=== PATIENT | female | born 1935 | race Caucasian/White ===

== ENCOUNTER 2017-01-09 16:59 | Emergency (ER) | payer MEDICARE, BC ==
[~2017-01-09] VITALS: Ht 157.5 cm; Wt 60.9 kg
[~2017-01-09 16:59] MED LIST: SALI414L TOP; VALS160T20 PO; ZOLP5TAB
[2017-01-09 17:02] VITALS: Ht 157.5 cm; Wt 60.9 kg
[2017-01-09] MEDS ORDERED: ACETAMINOPHEN 500 MG TAB PO STA (17:31)
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
--- NOTE | 2017-01-09 18:23 | RADRPT ---
PROCEDURE: CT Brain without contrast. CLINICAL INDICATION: Trauma, headache. TECHNIQUE: A CT of the brain was performed utilizing axial sections from the skull base through th e vertex without contrast. Multiplanar re-formations were generated. Images were reviewed on a high- resolution PACS workstation. CTDIvol: 44.03 mGy. DLP: 720.23 mGy-cm. One or more of the following dose reduction techniques were used: - Automated exposure control. - Adjustment of the mA and/or kV according to patient size. - Use of iterative reconstruction technique. COMPARISON: None available FINDINGS: There is mild to moderate generalized volume loss. No hydrocephalus is seen. A 6 mm calcified dural -based lesion along the left frontal region is consistent with a meningioma. There is no mass effec t. No acute intracranial hemorrhage is identified. There is no extra-axial collection. No CT eviden ce of acute infarction is identified. There is patchy low attenuation in the supratentorial white m atter, a nonspecific finding which most likely represents the sequela of mild to moderate chronic mi crovascular ischemic disease. There are moderate atherosclerotic arterial calcifications. There is no significant mucosal disease in the paranasal sinuses. The visualized mastoid air cells a re clear. The ossesous structures are unremarkable. There is soft tissue swelling over the nose. IMPRESSION: 1. No acute intracranial pathology. 2. Mild to moderate generalized volume loss. 3. Mild to moderate chronic microvascular ischemic changes. 4. Atherosclerotic arterial calcifications. 5. 6 mm calcified meningioma along the left frontal calvarium, without associated mass effect. RPTAT: HTAR .Rickie Locke MD, Date Time Electronically viewed and signed by .Rickie Locke MD, MD on 01/09/2017 18:22 .R/
--- NOTE | 2017-01-09 18:25 | RADRPT ---
PROCEDURE: CT scan facial bones CLINICAL INDICATION: Trauma, facial pain. TECHNIQUE: A CT of the facial bones was performed without intravenous contrast. Coronal and sagitt al reformats were generated. CTDIvol: 29.42 mGy. DLP: 488.19 mGy-cm. One or more of the following dose reduction techniques were used: - Automated exposure control. - Adjustment of the mA and/or kV according to patient size. - Use of iterative reconstruction technique. COMPARISON: None available FINDINGS: The soft tissues of the face are unremarkable. There is no facial fracture. The intraorbital struc tures are normal. There is a complete opacification of the left sphenoid sinus. A retention cyst o r secretions are noted in the right sphenoid sinus the nasal cavity is clear. The visualized intrac ranial soft tissues are within normal limits. IMPRESSION: 1. No facial fracture. RPTAT: HTAR .Rickie Locke MD, MD Date Time Electronically viewed and signed by .Rickie Locke MD, on 01/09/2017 18:25 .R/
[2017-01-09] MEDS ORDERED: ACET500C5 PO (18:33)
[2017-01-09] MEDS ORDERED: CIPR7.5D4 RIGHT EAR (18:33)
--- NOTE | 2017-01-09 19:25 | RADRPT ---
PROCEDURE: XR Shoulder. CLINICAL INDICATION: Right shoulder pain. Trauma TECHNIQUE: 3 views of the right shoulder were obtained. COMPARISON: None FINDINGS: No acute fracture or dislocation is seen. The glenohumeral and acromioclavicular joints arewithin n ormal limits. The osseous structures are well mineralized. The soft tissue structures are intact. The visualized portions of the right clavicle and chest appear unremarkable. IMPRESSION: Unremarkable right shoulder series. RPTAT: HPNM Physician Lynn Date Time Electronically viewed and signed by Physician Lynn on 01/09/2017 19:25 /
[2017-01-09] MEDS ORDERED: NPH10OT RIGHT EAR (19:34)
[2017-01-09 19:39] VITALS: BP 164/84; PULSE 68; RESP 18; TEMP 98.3
== END 2017-01-09 19:21 | disposition home or self-care (01) ==
LOC: E/R 16:59
DX: S09.90XA Unspecified injury of head, initial encounter (principal); S40.011A Contusion of right shoulder, initial encounter; S00.411A Abrasion of right ear, initial encounter; I10 Essential (primary) hypertension; R40.2142 Coma scale, eyes open, spontaneous, at arrival to emergency department; R40.2252 Coma scale, best verbal response, oriented, at arrival to emergency department; R40.2362 Coma scale, best motor response, obeys commands, at arrival to emergency department; V03.10XA Pedestrian on foot injured in collision with car, pick-up truck or van in traffic accident, initial encounter
CPT/HCPCS: 70450; 70486